=== PATIENT | male | born 1960 | race Caucasian/White ===

== ENCOUNTER 2016-05-05 10:48 | Outpatient (RCR) | payer BC ==
[~2016-05-05 10:48] MED LIST: ADVAIR 250/28 DISKUS IH; ADVIL200 MG PO; ALLOPURINOL100 MG PO; ASPIR-LOW81 MG PO; ASPIRIN E.C. 8181 MG PO; BENADRYL25 M2 PO; BRILINTA90 MG PO; DIOVAN HCT PO; DIOVAN/HCT 12.51 TAB PO; FLONASE NASAL S16 GM NS; GLUCOPHAGE1000 MG PO; GLUCOTROL5 MG PO; KRILL OIL 5001 EACH PO; LIPITOR 40MG TA40 MG PO; LIPITOR20 MG PO; LISINOPRIL PO; METFORMIN HCL500 M1 PO; MULTIPLE VITAMI1 CAP PO; OSTEO-BI-FLEX 21 TAB PO; RT ADVAIR 228 DISKUS IH; SINGULAIR10 MG PO; TOUJEO300 U/ML SQ; VENTOLIN0.09 MG IH; VICTOZA SQ; VICTOZA6 MG/ML SQ
== END 2016-05-12 14:03 | disposition home or self-care (01) ==
LOC: COL.CR 10:48
DX: Z95.5 Presence of coronary angioplasty implant and graft (principal)

== ENCOUNTER 2016-12-30 20:10 | Emergency (ER) | payer BC ==
[~2016-12-30] VITALS: Ht 185.4 cm; Wt 116.4 kg
[2016-12-30 20:12] VITALS: TEMP 97.8
[2016-12-30 20:46] LABS: COLLECTION METHOD CLEAN CATCH
[2016-12-30 20:51] LABS: HEMATOCRIT 48.2 % (42.0-52.0); HEMOGLOBIN 16.4 g/dl (13.5-18.0); MEAN CELL VOLUME 86 fl (80.0-100.0); MEAN CORPUSCULAR HEMOGLOBIN 29 pg (27.0-31.0); MEAN CORPUSCULAR HGB CONC 34 g/dl (33.0-37.0); MEAN PLATELET VOLUME 10.2 fl (7.4-10.4); PLATELET COUNT 271 K/mm3 (130-400); RED BLOOD COUNT 5.59 M/mm3 (4.20-5.60); WHITE BLOOD COUNT 18.8 K/mm3 (4.8-10.8)
[2016-12-30 20:54] LABS: ADD PATHOLOGY DIFF REVIEW NO
[2016-12-30 20:58] LABS: ADJUSTED CALCIUM 9.2 mg/dL (8.4-10.2); ALBUMIN 4.7 gm/dL (3.5-5.0); BILIRUBIN,TOTAL 1.5 mg/dL (0.0-1.0); CALCIUM 9.8 mg/dL (8.4-10.2); CREATININE, serum 0.86 mg/dL (0.66-1.25); POTASSIUM 3.9 mmol/L (3.4-5.0)
[2016-12-30] MEDS ORDERED: CARDIZEM CD 12120 MG PO (21:05)
[2016-12-30] MEDS ORDERED: CLARITIN 1010 MG/TAB PO (21:07)
[2016-12-30] MEDS ORDERED: SINGULAIR 110 MG/TAB PO (21:08)
[2016-12-30] MEDS ORDERED: NITROSTAT0.4 MG/TAB (21:08)
[2016-12-30] MEDS ORDERED: EFFIENT10 MG PO (21:09)
[2016-12-30] MEDS ORDERED: ZANTAC 150150 MG (21:09)
[2016-12-30 21:10] LABS: INR 0.9 (0.8-3.0); PROTHROMBIN TIME 9.9 SECONDS (9.7-12.8)
[2016-12-30 21:27] LABS: PH 7 (5-8); SQUAMOUS EPITHELIAL None Seen /hpf; URINE APPEARANCE Cloudy; URINE BACTERIA Moderate /hpf; URINE BILIRUBIN Negative (NEGATIVE); URINE BLOOD 3+ (NEGATIVE); URINE COLOR Red; URINE GLUCOSE 3+ (NEGATIVE); URINE KETONE Negative (NEGATIVE); URINE LEUKOCYTE ESTERASE Trace (NEGATIVE); URINE PROTEIN(semi-quant) 3+ (NEGATIVE); URINE RBC >50 /hpf; URINE UROBILINOGEN Negative (NEGATIVE)
[2016-12-30 21:30] LABS: URINE WBC >50 /hpf
[2016-12-30 21:38] LABS: BAND 10 % (0-10); LYMPHOCYTE 18 % (20.0-51.0); NEUTROPHILS 64 % (42.0-75.2); PLATELET ESTIMATE NORMAL (NORMAL); TOTAL CELLS COUNTED 100
[2016-12-30] MEDS ORDERED: CIPRO 500MG TA500 MG PO (21:51)
[2016-12-30 22:27] VITALS: BP 136/94; PULSE 99
== END 2016-12-30 22:28 | disposition home or self-care (01) ==
LOC: COL.ER 20:10
PROVIDERS: Family Medicine
DX: N30.91 Cystitis, unspecified with hematuria (principal); E11.9 Type 2 diabetes mellitus without complications; I10 Essential (primary) hypertension; I25.10 Atherosclerotic heart disease of native coronary artery without angina pectoris; Z95.5 Presence of coronary angioplasty implant and graft; Z79.4 Long term (current) use of insulin; Z79.82 Long term (current) use of aspirin; Z79.1 Long term (current) use of non-steroidal anti-inflammatories (NSAID)
CPT/HCPCS: J0696; J7030; Q9967

== ENCOUNTER 2017-12-07 05:16 | Day surgery (SDC) | payer BC ==
[2017-12-07] VITALS (8 sets, daily range): BP systolic 105–128; BP diastolic 68–79; PULSE 63–88; TEMP 97.4–97.6
[~2017-12-07] VITALS: Ht 185.4 cm; Wt 120.0 kg
[~2017-12-07 05:16] MED LIST changes: +CARDIZEM CD 12120 MG PO; +CEPHALEXIN500 M1 PO; +CIPRO 500MG TA500 MG PO; +EFFIENT10 MG PO; +FARXIGA10 PO; -MULTIPLE VITAMI1 CAP PO; +MULTIPLE VITAMI1 TA5 PO; +NITROSTAT0.4 MG/TAB SL; +SINGULAIR 110 MG/TAB PO; -TOUJEO300 U/ML SQ; +TRESIBA FL100 UNIT/1 SQ; +ZANTAC 150150 MG PO
[2017-12-07] MEDS ORDERED: GLUCOSAMINE & C1 CA2 PO (05:55)
[2017-12-07] MEDS ORDERED: VICTOZA6 MG/ML SQ (05:57)
== END 2017-12-07 11:40 | disposition home or self-care (01) ==
LOC: SDCO 05:16
DX: N35.919 Unspecified urethral stricture, male, unspecified site (principal); R31.0 Gross hematuria; Z87.440 Personal history of urinary (tract) infections; I10 Essential (primary) hypertension; G47.33 Obstructive sleep apnea (adult) (pediatric); J45.909 Unspecified asthma, uncomplicated; I25.10 Atherosclerotic heart disease of native coronary artery without angina pectoris; E78.5 Hyperlipidemia, unspecified; M10.9 Gout, unspecified; E11.9 Type 2 diabetes mellitus without complications; Z79.899 Other long term (current) drug therapy; Z79.82 Long term (current) use of aspirin
CPT/HCPCS: C1726; C1769; J0690; J1170; J2270; J2405; J2550; J2704; J3010; J7030; Q9967